=== PATIENT | female | born 1955 | race Caucasian/White ===

== ENCOUNTER 2022-01-20 11:06 | Emergency (ER) | payer MEDICARE, BC ==
[~2022-01-20] VITALS: Ht 151.1 cm; Wt 81.8 kg
[2022-01-20 11:42] LABS: BASOPHILS # (AUTO) 0.1 X10'3 (0-0.2); BASOPHILS % (AUTO) 0.4 % (0-1); EOSINOPHILS % (AUTO) 0 % (0-6); HEMATOCRIT 36.1 % (35.0-45.0); HEMOGLOBIN 11.8 g/dl (12.0-16.0); LYMPHOCYTES # (AUTO) 0.7 X10'3 (1.1-4.8); LYMPHOCYTES % (AUTO) 3.9 % (21-51); MEAN CORPUSCULAR HEMOGLOBIN 28.7 PG (27.0-31.0); MEAN CORPUSCULAR HGB CONC 32.8 g/dL (33.0-36.5); MEAN CORPUSCULAR VOLUME 87.5 FL (78-98); MEAN PLATELET VOLUME 7.4 FL (7.4-10.4); MONOCYTES # (AUTO) 1.3 X10'3 (0-0.9); MONOCYTES % (AUTO) 6.8 % (2-12); NEUTROPHILS # (AUTO) 16.7 X10'3 (1.8-7.7); NEUTROPHILS % (AUTO) 88.9 % (42-75); PLATELET COUNT 327 X10'3 (140-440); RED BLOOD COUNT 4.13 X10'6 (4.20-5.60); RED CELL DISTRIBUTION WIDTH 14.4 % (11.5-14.5); WHITE BLOOD COUNT 18.8 X10'3 (4.5-11.0)
[2022-01-20 14:01] LABS: ALANINE AMINOTRANSFERASE 30 U/L (12-78); ALBUMIN/GLOBULIN RATIO 0.4 (1.1-1.5); ALKALINE PHOSPHATASE 90 IU/L (46-116); ANION GAP 11 (8-16); ASPARTATE AMINO TRANSFERASE 44 U/L (10-37); BILIRUBIN,TOTAL 0.8 MG/DL (0.1-1.0); BLOOD UREA NITROGEN 12 MG/DL (7-18); BUN/CREATININE RATIO 10.4 (6.6-38.0); CALCIUM 8.9 MG/DL (8.5-10.1); CHLORIDE 102 MMOL/L (99-107); CREATININE 1.15 MG/DL (0.40-0.90); GLUCOSE 137 MG/DL (70-104); POTASSIUM 3.3 MMOL/L (3.5-5.1); SODIUM 137 MMOL/L (135-145); TOTAL CARBON DIOXIDE 24.1 MMOL/L (24-32); TOTAL PROTEIN 10.8 G/DL (6.4-8.2); eGFR 47 ML/MIN
--- NOTE | 2022-01-20 16:48 | NUR ---
first contact ao4 resp even unlabored. productive cough pt denies dizziness claims some weakness. skin w/d/i pink.
[2022-01-20] MEDS ORDERED: acetaminophen 325mg tablet PO ONE (16:55)
[2022-01-20] MEDS ORDERED: ringers solution, lacted 1,000 ML IV ONE (16:55)
[2022-01-20] MEDS ORDERED: CefTRIAXone 2gm/D5W 50ml BAG 50 ML IV ONE (17:00)
[2022-01-20] MEDS ORDERED: potassium Cl 20 mEq SR tablet PO STA (17:25)
[2022-01-20] MEDS ORDERED: magnesium 2GM in 50ml NS 50 ML IV ONE (17:25)
--- NOTE | 2022-01-20 18:17 | NUR ---
report to james dacosta for continuation of care.
[2022-01-20 19:49] VITALS: BP 152/86
[2022-01-20] MEDS ORDERED: AMOX-117 PO (20:41)
[2022-01-20 20:47] LABS: CLARITY,URINE CLEAR (Clear); COLOR,URINE YELLOW (Yellow); GLUCOSE, URINE NEGATIVE (Neg); KETONES,URINE NEGATIVE (Neg); LEUKOCYTE ESTERASE ,URINE NEGATIVE (Neg); NITRITES, URINE NEGATIVE (Neg); OCCULT BLOOD,URINE MODERATE (Neg); PROTEIN,URINE TRACE mg/dl (Neg); UROBILINOGEN,URINE 0.2 E.U/dL (0.2-1.0)
[2022-01-20 20:56] LABS: UA COLLECTION TYPE VOIDED
[2022-01-20 20:58] LABS: BACTERIA,URINE FEW /HPF (Neg); SQUAMOUS EPITHELIAL CELL,UR FEW /LPF (FEW); WBC,URINE 0-4 /HPF (0-4)
== END 2022-01-20 20:53 | disposition home or self-care (01) ==
LOC: ER 11:07
DX: J20.9 Acute bronchitis, unspecified (principal); E86.0 Dehydration; Z79.899 Other long term (current) drug therapy
CPT/HCPCS: 36415; 71045; 71250; 80053; 81001; 83605; 83880; 84145; 84484; 85025; 87040; 93005; 96365; 96367; 99285; J0696; J3475; J7120; J7030